=== PATIENT | male | born 1960 | race Caucasian/White ===

== ENCOUNTER 2016-10-12 20:14 | Emergency (ER) | payer OTHER ==
[~2016-10-12] VITALS: Ht 175.3 cm; Wt 68.0 kg
[2016-10-12 20:25] VITALS: BP 120/85
[2016-10-12] MEDS ORDERED: NAPR500T PO (21:08)
--- NOTE | 2016-10-12 21:23 | PHYS DOC ---
Past Medical History Past Medical History: No Pertinent History Past Surgical History: Tonsillectomy Smoking: Cigarettes, 1 Pack Per Day Alcohol Use: None Drug Use: Cocaine, Marijuana Adult General Chief Complaint Chief Complaint: ABDOMINAL PAIN [facility] HPI Patient is a 56 year old male who presents with abdominal pain in the left lower abdomen associated with a bulging and he just recently expensive last several weeks. This bulging. His reducible at this point he notices primarily when he lifts heavy things during his job. 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 Patient denies any nausea, vomiting, diarrhea, UTI symptoms, decreased flatus or inability to bowel without bowel movement. Patient denies indirect trauma. Patient says that this bulging began several weeks ago as got progressively more frequent and more severe. She denies any hematuria, fevers or chills or other symptoms.Denies penile discharge or scrotal pain or rectal discomfort. Review of Systems Review of Systems Constitutional: Denies fever or chills [] Eyes: Denies change in visual acuity, redness, or eye pain [] HENT: Denies nasal congestion or sore throat [] Respiratory: Denies cough or shortness of breath [] Cardiovascular: No additional information not addressed in HPI [] GI: His only complaint is left inguinal abdominal pain no, nausea, vomiting, bloody stools or diarrhea [] : Denies dysuria or hematuria [] Musculoskeletal: Denies back pain or joint pain [] Integument: Denies rash or skin lesions [] Neurologic: Denies headache, focal weakness or sensory changes [] Endocrine: Denies polyuria or polydipsia [] Allergies Allergies Allergies Coded Allergies Type Severity Reaction Last Updated Verified No Known Drug Allergies 10/12/16 No Physical Exam Physical Exam Constitutional: Well developed, well nourished, no acute distress, non-toxic appearance. [] HENT: Normocephalic, atraumatic, bilateral external ears normal, oropharynx moist, no oral exudates, nose normal. [] Eyes: PERRLA, EOMI, conjunctiva normal, no discharge. [] Neck: Normal range of motion, no tenderness, supple, no stridor. [] Cardiovascular:Heart rate regular rhythm, no murmur [] Lungs & Thorax: Bilateral breath sounds clear to auscultation [] Abdomen: Bowel sounds normal, soft, no tenderness, no masses, no pulsatile masses. he does have a reducible inguinal hernia on the left Skin: Warm, dry, no erythema, no rash. [] Back: No tenderness, no CVA tenderness. [] Extremities: No tenderness, no cyanosis, no clubbing, ROM intact, no edema. [] Neurologic: Alert and oriented X 3, normal motor function, normal sensory function, no focal deficits noted. [] Psychologic: Affect normal, judgement normal, mood normal. [] Current Patient Data Vital Signs Vital Signs Date Time Temp Pulse Resp B/P (MAP) Pulse Ox O2 Delivery O2 Flow Rate FiO2 10/12/16 20:25 98.4 87 16 120/85 (97) 95 Room Air 98.4 EKG EKG [] Radiology/Procedures Radiology/Procedures [] Course & Med Decision Making Course & Med Decision Making Pertinent Labs and Imaging studies reviewed. (See chart for details) Patient with a soft abdomen he is reproducible inguinal hernia that I would call symptomatically because worse when he lifts. I gave him follow-up with a general surgeon who could electively repair his symptomatic inguinal hernia. It is not incarcerated is not strangulated by physical exam is easily reproducible and reducible. Impression direct inguinal hernia next disposition discharged home with general surgery follow-up and precautions about lifting given [] Dragon Disclaimer Dragon Disclaimer This electronic medical record was generated, in whole or in part, using a voice recognition dictation system. Departure Departure Impression: Primary Impression: Inguinal hernia Disposition: 01 HOME, SELF-CARE Condition: STABLE Referrals: DAVID BHANDARI MD NO PCP (PCP) Patient Instructions: Hernia Additional Instructions: Please return for any increasing pain or inability to reduce your hernia in the left lower abdomen. Please refrain from lifting any heavy objects until you're seen by the general surgeon this upcoming week. Return if you have any inability to urinate and inability to pass flatus or stool next 12-24 hours or give any questions or concerns. Scripts Naproxen (NAPROSYN) 500 Mg Tablet 1 TAB PO BID, #14 TAB 1 Refill Prov: RAUL VAZQUEZ MD 10/12/16 RAUL VAZQUEZ MD Oct 12, 2016 21:23
== END 2016-10-12 21:13 | disposition home or self-care (01) ==
LOC: ER 20:14
DX: K40.90 Unilateral inguinal hernia, without obstruction or gangrene, not specified as recurrent (principal); F17.210 Nicotine dependence, cigarettes, uncomplicated; F12.10 Cannabis abuse, uncomplicated; F14.10 Cocaine abuse, uncomplicated
CPT/HCPCS: 99283

== ENCOUNTER 2018-09-18 19:08 | Emergency (ER) | payer SELFPAY ==
[~2018-09-18] VITALS: Ht 175.3 cm; Wt 68.0 kg
[~2018-09-18 19:08] MED LIST: NAPR-683 PO
[2018-09-18] MEDS ORDERED: IV NORMAL SALINE 1000ML BAG 1,000 ML IV ONE (19:45)
[2018-09-18 19:50] LABS: BASO % 0 % (0-3); EOS % 0 % (0-3); HEMATOCRIT 53.3 % (39.0-53.0); HEMOGLOBIN 17.2 g/dL (13.0-17.5); LYMPH % 7 % (24-48); MEAN CORPUSCULAR HEMOGLOBIN 30 pg (25-35); MEAN CORPUSCULAR HGB CONC 32 g/dL (31-37); MEAN CORPUSCULAR VOLUME 93 fL (79-100); MONO # 0.6 x10^3/uL (0.0-1.1); MONO % 4 % (0-9); NEUT # 13.5 x10^3uL (1.8-7.7); NEUT % 89 % (31-73); PLATELET COUNT 248 x10^3/uL (140-400); RED BLOOD COUNT 5.71 x10^6/uL (4.30-5.70); RED CELL DISTRIBUTION WIDTH 13.5 % (11.5-14.5); WHITE BLOOD COUNT 15.2 x10^3/uL (4.0-11.0)
--- NOTE | 2018-09-18 19:53 | PHYS DOC ---
Past Medical History Past Medical History: No Pertinent History (TERRELL ROBLES DO) Past Surgical History: Tonsillectomy (TERRELL ROBLES DO) Alcohol Use: None Drug Use: Cocaine, Marijuana (TERRELL ROBLES DO) Adult General Chief Complaint Chief Complaint: fell out of 10 feet tree, landed on back. HPI HPI Patient is a 58 year old who presented to the ER by private vehicle for evaluation of back pain, chest pain and pelvic pain after he fell out of a 10 feet tree. Patient was trying to cut the tree limb. He was in the tree and his partner tried to pull the rope down, and accidentally pulled the tree limb, knocked him down. Patient said he hit the back of his head on grass but no loss of consciousness. He was able to get up to walk several times after the accident. Patient denied any bowel or bladder incontinence. Patient complains of midback pain, right side chest pain, left side pelvic pain and left groin pain. Patient denied any extremities pain, no feet pain, no knee pain. Patient had a tetanus vaccination 2 years ago. Patient said he is not on any medication at this time. (TERRELL ROBLES DO) Review of Systems Review of Systems Constitutional: Denies fever or chills [] Eyes: Denies change in visual acuity, redness, or eye pain [] HENT: Denies nasal congestion or sore throat [] Respiratory: Denies cough or shortness of breath [] Cardiovascular: No additional information not addressed in HPI [] GI: Denies abdominal pain, nausea, vomiting, bloody stools or diarrhea [] : Denies dysuria or hematuria [] Musculoskeletal: Denies back pain or joint pain [] Integument: Denies rash or skin lesions [] Neurologic: Denies headache, focal weakness or sensory changes [] Endocrine: Denies polyuria or polydipsia [] All other systems were reviewed and found to be within normal limits, except as documented in this note. (TERRELL ROBLES DO) Current Medications Current Medications Current Medications Medications (Trade) Dose Ordered Sig/Ronald Start Time Stop Time Status Last Admin Dose Admin Info (CONTRAST GIVEN -- Rx MONITORING) 1 each PRN DAILY PRN 09/18/18 20:15 09/20/18 20:14 Iohexol (Omnipaque 300 Mg/ml) 75 ml 1X ONCE 09/18/18 20:15 09/18/18 20:16 DC 09/18/18 20:15 75 ML Neomycin/ Polymyxin/ Bacitracin (Triple Antibiotic Ointment) 1 pkt 1X ONCE 09/18/18 22:30 09/18/18 22:31 Sodium Chloride 1,000 ml @ 1,000 mls/hr 1X ONCE 09/18/18 19:45 09/18/18 20:44 DC 09/18/18 20:03 1,000 MLS/HR (REBEKAH JONAS DO) Allergies Allergies Allergies Coded Allergies Type Severity Reaction Last Updated Verified No Known Drug Allergies 10/12/16 No (REBEKAH JONAS DO) Physical Exam Physical Exam Constitutional: Well developed, well nourished, no acute distress, non-toxic appearance. [] HENT: Normocephalic, atraumatic, bilateral external ears normal, oropharynx moist, no oral exudates, nose normal. [] Eyes: PERRLA, EOMI, conjunctiva normal, no discharge. [] Neck: no tenderness, no stridor, in rigid C-collar that was applied in triage. Cardiovascular:Heart rate regular rhythm, no murmur [] Lungs & Thorax: Bilateral breath sounds clear to auscultation, there is a large area of skin contusion and abrasion along the right scapular area, There is tenderness to palpation on right posterior ribs area just below right scapular and above rib # 10. Abdomen: Bowel sounds normal, soft, There is tenderness in left groin and left lower abdominal area, there is a reducible left inguinal hernia, no masses, no pulsatile masses. [] Skin: Warm, dry, no erythema, . SKIN ABRASION ON LEFT SCAPULAR AREA. Back: There is right flank tenderness to palpation, there is midline tenderness to palpation in area of L1 TO T7. Extremities: No tenderness, no cyanosis, no clubbing, ROM intact, no edema. There is left side pelvic tenderness to palpation. There is no feet or calcaneous tenderness to palpation. Neurologic: Alert and oriented X 3, normal motor function, normal sensory function, no focal deficits noted. [] Psychologic: Affect normal, judgement normal, mood normal. [] (TERRLEL ROBLES DO) Physical Exam Constitutional: Well developed, well nourished, no acute distress, non-toxic appearance. [] HENT: Normocephalic, atraumatic, oropharynx moist Eyes: PERRL, EOMI, conjunctiva normal, no discharge. [] Neck: C-collar cleared post CT, full ROM, no midline cervical spine tenderness Cardiovascular: Heart rate regular rhythm Lungs & Thorax: Bilateral breath sounds clear to auscultation Abdomen: Soft, Left inguinal area with some mild tenderness. NO hernia noted with patient in supine position; Pelvis stable and nontender Skin: Warm, dry, no erythema, Abrasion to left scapular area Back: Midline tenderness to thoracolumbar region Extremities: No tenderness, ROM intact, no deformity Neurologic: Alert and oriented X 3, normal motor function, normal sensory function, no focal deficits noted. [] Psychologic: Affect normal, judgement normal, mood normal. [] (REBEKAH JONAS DO) Current Patient Data Vital Signs Vital Signs Date Time Temp Pulse Resp B/P (MAP) Pulse Ox O2 Delivery O2 Flow Rate FiO2 09/18/18 21:42 82 21 132/85 (101) 93 Room Air 09/18/18 19:13 98.1 98.1 (REBEKAH JONAS DO) Lab Values Laboratory Tests Test 09/18/18 19:30 09/18/18 22:03 White Blood Count 15.2 x10^3/uL (4.0-11.0) H Red Blood Count 5.71 x10^6/uL (4.30-5.70) H Hemoglobin 17.2 g/dL (13.0-17.5) Hematocrit 53.3 % (39.0-53.0) H Mean Corpuscular Volume 93 fL (79-100) Mean Corpuscular Hemoglobin 30 pg (25-35) Mean Corpuscular Hemoglobin Concent 32 g/dL (31-37) Red Cell Distribution Width 13.5 % (11.5-14.5) Platelet Count 248 x10^3/uL (140-400) Neutrophils (%) (Auto) 89 % (31-73) H Lymphocytes (%) (Auto) 7 % (24-48) L Monocytes (%) (Auto) 4 % (0-9) Eosinophils (%) (Auto) 0 % (0-3) Basophils (%) (Auto) 0 % (0-3) Neutrophils # (Auto) 13.5 x10^3uL (1.8-7.7) H Lymphocytes # (Auto) 1.0 x10^3/uL (1.0-4.8) Monocytes # (Auto) 0.6 x10^3/uL (0.0-1.1) Eosinophils # (Auto) 0.0 x10^3/uL (0.0-0.7) Basophils # (Auto) 0.0 x10^3/uL (0.0-0.2) Segmented Neutrophils % 84 % (35-66) H Band Neutrophils % 3 % (0-9) Lymphocytes % 8 % (24-48) L Monocytes % 5 % (0-10) Platelet Estimate Adequate (ADEQUATE) Prothrombin Time 12.3 SEC (11.7-14.0) Prothrombin Time INR 0.9 (0.8-1.1) PTT 36 SEC (24-38) Sodium Level 141 mmol/L (136-145) Potassium Level 3.5 mmol/L (3.5-5.1) Chloride Level 102 mmol/L (98-107) Carbon Dioxide Level 26 mmol/L (21-32) Anion Gap 13 (6-14) Blood Urea Nitrogen 18 mg/dL (8-26) Creatinine 1.1 mg/dL (0.7-1.3) Estimated GFR (Cockcroft-Gault) 68.5 BUN/Creatinine Ratio 16 (6-20) Glucose Level 97 mg/dL (70-99) Calcium Level 10.1 mg/dL (8.5-10.1) Total Bilirubin 0.4 mg/dL (0.2-1.0) Aspartate Amino Transferase (AST) 41 U/L (15-37) H Alanine Aminotransferase (ALT) 31 U/L (16-63) Alkaline Phosphatase 66 U/L (46-116) Total Protein 9.0 g/dL (6.4-8.2) H Albumin 4.8 g/dL (3.4-5.0) Albumin/Globulin Ratio 1.1 (1.0-1.7) Ethyl Alcohol Level < 10 mg/dL (0-10) Urine Collection Type Void Urine Color Yellow Urine Clarity Clear Urine pH 5.5 Urine Specific Buckhorn >=1.030 Urine Protein Negative mg/dL (NEG-TRACE) Urine Glucose (UA) Negative mg/dL (NEG) Urine Ketones (Stick) Negative mg/dL (NEG) Urine Blood Negative (NEG) Urine Nitrite Negative (NEG) Urine Bilirubin Negative (NEG) Urine Urobilinogen Dipstick 0.2 mg/dL (0.2 mg/dL) Urine Leukocyte Esterase Negative (NEG) Urine RBC Occ /HPF (0-2) Urine WBC Occ /HPF (0-4) Urine Squamous Epithelial Cells None /LPF Urine Bacteria 0 /HPF (0-FEW) Urine Mucus Marked /LPF Urine Sperm Present /HPF Urine Opiates Screen Neg (NEG) Urine Methadone Screen Neg (NEG) Urine Barbiturates Neg (NEG) Urine Phencyclidine Screen Neg (NEG) Urine Amphetamine/Methamphetamine Neg (NEG) Urine Benzodiazepines Screen Neg (NEG) Urine Cocaine Screen Pos (NEG) Urine Cannabinoids Screen Neg (NEG) Urine Ethyl Alcohol Neg (NEG) Laboratory Tests 09/18/18 19:30 Laboratory Tests 09/18/18 19:30 (REBEKAH JONAS DO) Lab Values Laboratory Tests Test 09/18/18 19:30 White Blood Count 15.2 x10^3/uL (4.0-11.0) H Red Blood Count 5.71 x10^6/uL (4.30-5.70) H Hemoglobin 17.2 g/dL (13.0-17.5) Hematocrit 53.3 % (39.0-53.0) H Mean Corpuscular Volume 93 fL (79-100) Mean Corpuscular Hemoglobin 30 pg (25-35) Mean Corpuscular Hemoglobin Concent 32 g/dL (31-37) Red Cell Distribution Width 13.5 % (11.5-14.5) Platelet Count 248 x10^3/uL (140-400) Neutrophils (%) (Auto) 89 % (31-73) H Lymphocytes (%) (Auto) 7 % (24-48) L Monocytes (%) (Auto) 4 % (0-9) Eosinophils (%) (Auto) 0 % (0-3) Basophils (%) (Auto) 0 % (0-3) Neutrophils # (Auto) 13.5 x10^3uL (1.8-7.7) H Lymphocytes # (Auto) 1.0 x10^3/uL (1.0-4.8) Monocytes # (Auto) 0.6 x10^3/uL (0.0-1.1) Eosinophils # (Auto) 0.0 x10^3/uL (0.0-0.7) Basophils # (Auto) 0.0 x10^3/uL (0.0-0.2) Segmented Neutrophils % 84 % (35-66) H Band Neutrophils % 3 % (0-9) Lymphocytes % 8 % (24-48) L Monocytes % 5 % (0-10) Platelet Estimate Adequate (ADEQUATE) Prothrombin Time 12.3 SEC (11.7-14.0) Prothrombin Time INR 0.9 (0.8-1.1) PTT 36 SEC (24-38) Sodium Level 141 mmol/L (136-145) Potassium Level 3.5 mmol/L (3.5-5.1) Chloride Level 102 mmol/L (98-107) Carbon Dioxide Level 26 mmol/L (21-32) Anion Gap 13 (6-14) Blood Urea Nitrogen 18 mg/dL (8-26) Creatinine 1.1 mg/dL (0.7-1.3) Estimated GFR (Cockcroft-Gault) 68.5 BUN/Creatinine Ratio 16 (6-20) Glucose Level 97 mg/dL (70-99) Calcium Level 10.1 mg/dL (8.5-10.1) Total Bilirubin 0.4 mg/dL (0.2-1.0) Aspartate Amino Transferase (AST) 41 U/L (15-37) H Alanine Aminotransferase (ALT) 31 U/L (16-63) Alkaline Phosphatase 66 U/L (46-116) Total Protein 9.0 g/dL (6.4-8.2) H Albumin 4.8 g/dL (3.4-5.0) Albumin/Globulin Ratio 1.1 (1.0-1.7) Ethyl Alcohol Level < 10 mg/dL (0-10) Laboratory Tests 09/18/18 19:30 Laboratory Tests 09/18/18 19:30 (TERRELL ROBLES DO) EKG EKG [] (TERRELL ROBLES DO) Radiology/Procedures Radiology/Procedures [] (TERRELL ROBLES DO) Radiology/Procedures PROCEDURE: CT HEAD AND CERVICAL SPINE WO EXAM: Head cervical spine CT without contrast. HISTORY: Fall. TECHNIQUE: Computed tomographic images of the head and cervical spine were obtained without contrast. *One or more of the following individualized dose reduction techniques were utilized for this examination: 1. Automated exposure control. 2. Adjustment of the mA and/or kV according to patient size. 3. Use of iterative reconstruction technique. COMPARISON: None. FINDINGS: Head: There is no hemorrhage. There is no mass effect or midline shift. There is no hydrocephalus. The julian-white matter differentiation pattern is intact. The orbits are unremarkable. There is a left lamina appreciable fracture. This is chronic in appearance. The mastoid air cells are clear. No calvarial lesion is seen. Cervical spine: There is mild listhesis at multiple levels. There is degenerative endplate remodeling with disc space narrowing and osteophytosis primarily at C5-C6. There is multilevel facet arthropathy. There is no suspicious osseous lesion. There is mild biapical emphysema. At C2-C3, there is a disc bulge and endplate remodeling. There is mild right facet and uncovertebral arthropathy. There is mild right foraminal stenosis. At C3-C4, there is a disc bulge and endplate osteophytosis. There is mild bilateral facet arthropathy. There is bilateral uncovertebral arthropathy. There is severe right and moderate left foraminal stenosis. At C4-C5, there is a posterior central disc protrusion superimposed on a disc bulge. There is mild right facet arthropathy. There is mild right foraminal stenosis. At C5-C6, there is a disc bulge and endplate osteophytosis. There is moderate right facet arthropathy. There is bilateral uncovertebral arthropathy. There is mild to moderate bilateral foraminal stenosis. At C6-C7, there is a disc bulge and endplate osteophytosis. There is mild right foraminal stenosis. IMPRESSION: 1. No acute intracranial finding or evidence of acute cervical spine trauma. 2. Left lamina papyracea fracture, chronic in appearance. 3. Degenerative change within the cervical spine, described in detail above. Electronically signed by: Anyi Grey MD (09/18/2018 8:51 PM) [facility] PROCEDURE: CT CHEST/ABD/PELVIS/THORACIC/LUMBAR SPINE RECONSTRUCT EXAM: Chest, abdomen and pelvis CT with intravenous contrast; thoracic and lumbar spine CT without contrast. HISTORY: Fall. TECHNIQUE: Computed tomographic images of the chest, abdomen and pelvis were obtained following the administration of contrast. Noncontrast reformatted images of the lumbar and thoracic spine were also obtained. Multiplanar reformatting was performed. *One or more of the following individualized dose reduction techniques were utilized for this examination: 1. Automated exposure control. 2. Adjustment of the mA and/or kV according to patient size. 3. Use of iterative reconstruction technique. COMPARISON: None. FINDINGS: Chest: The heart is normal in size. The aorta is normal in caliber. There is no dissection. There is no evidence of traumatic mediastinal injury. There is no pathologically enlarged distal or hilar lymph node. The thyroid is unremarkable. There is pulmonary emphysema. There is no pneumothorax or pleural effusion. There is no infiltrate. There is posterior dependent and basilar atelectasis. There is mild central bronchial wall thickening. There is a 7 mm slightly irregular nodular opacity within the anterior inferior left upper lobe. There is a 9 mm nodule within the right middle lobe along the horizontal fissure. There is a similar smaller nodule along the anterior right horizontal fissure measuring 3 mm. These may be due to fissural lymph nodes. There is a 4 mm pleural-based nodule within the lateral right lower lobe. No displaced rib fracture is seen. No sternal fracture is seen. Abdomen and pelvis: There is a tiny hiatal hernia. There is minimal fatty infiltration of the liver along the falciform ligament. The gallbladder, pancreas, and spleen are unremarkable. There is a 2.4 cm right adrenal nodule. There is a 1.3 cm left adrenal nodule. The kidneys are unremarkable. There is no appendicitis. There is no bowel obstruction. There is moderate colonic stool. There are a few distal colonic diverticula. The bladder is unremarkable. The prostate is mildly enlarged. There is a small fat-containing left inguinal hernia. There is no lymphadenopathy. There is aortic atherosclerosis. Lumbar spine: There is an acute mildly depressed superior endplate compression fracture of the left greater the right aspect of L2. No fracture line extension is seen to the posterior elements. There is no retropulsion of the L2 cortex into the central canal. There is also faint linear lucency along the inferior endplate of L1 which may be due to endplate remodeling or a nondisplaced fracture. There is multilevel endplate remodeling. There is minimal retrolisthesis of L2 on L3 and L3 on L4. There is minimal grade 1 anterolisthesis of L4 and L5. There is mild scoliosis. There is multilevel facet arthropathy. A combination of disc bulges with endplate remodeling and facet arthropathy contributes to mild bilateral foraminal stenosis at L1-L2, L2-L3 and L3-L4. There is mild bilateral foraminal and mild central canal stenosis at L4-L5 and there is moderate right and mild left foraminal stenosis at L5-S1. Thoracic spine: There is mild thoracic scoliosis and increased kyphosis. No acute fracture is seen. There is degenerative endplate remodeling with anterior spurring at multiple levels. There is no suspicious osseous lesion. There are multiple disc bulges. There is no severe thoracic foraminal or central canal stenosis. IMPRESSION: 1. Mildly depressed acute superior endplate compression fracture of L2. No fracture line extension to the posterior elements or retropulsion of the cortex is seen. There is lucency along the adjacent inferior L1 endplate which may be degenerative or due to a nondisplaced fracture. 2. No acute thoracic or intra-abdominal or intrapelvic finding. 3. Pulmonary emphysema. 4. Bilateral pulmonary nodules, the largest of which measures 9 mm along the right horizontal fissure and may be a fissural lymph node. The second largest nodule measures 7 mm within the anterior left upper lobe. Follow up according to Fleischner Society criteria. 5. Tiny hiatal hernia. 6. Hepatic steatosis. 7. Bilateral adrenal nodules. Follow up with an adrenal protocol CT or MRI can be performed for characterization. 8. Few distal colonic diverticula. 9. Small fat-containing left internal hernia and mild prostatomegaly. 10. Multilevel degenerative change within the lumbar and thoracic spine. This results in stenosis at the aforementioned lumbar levels. Electronically signed by: Anyi Grey MD (09/18/2018 9:12 PM) [facility] (REBEKAH JONAS DO) Course & Med Decision Making Course & Med Decision Making Pertinent Labs and Imaging studies reviewed. (See chart for details) Handed over care to Dr. Leonid Jonas at shift change. (TERRELL ROBLES DO) Course & Med Decision Making 1800- Signout received from Dr. Robles for patient s/p fall from 10 feet. Patient seen and evaluated by myself. Labs reviewed. UA pending. UA without acute process. CT head/chest/abd/pelvis and CT cervical/thoracic/lumbar spine pending. CT findings of acute mild lumbar compression fracture. Left inguinal fat containing hernia noted. CT also noted incidental pulmonary nodule. C- collar cleared. Patient stable for discharge with outpatient follow-up with PCP. Discussed findings and plan with patient, who acknowledges understanding and agreement. (REBEKAH JONAS DO) Dragon Disclaimer Dragon Disclaimer This electronic medical record was generated, in whole or in part, using a voice recognition dictation system. (TERRELL ROBLES DO) Departure Departure Impression: Primary Impression: Fall Additional Impressions: Inguinal hernia Compression fracture Pulmonary nodules Abrasion Disposition: HOME, SELF-CARE Condition: STABLE Referrals: NO PCP (PCP) Patient Instructions: Abrasion, [id number], Back, Compression Fracture, Inguinal Hernia, Adult, Pulmonary Nodule, [id number] Scripts Ibuprofen (MOTRIN IB) 200 Mg Tablet 600 MG PO Q8HRS PRN for PAIN, #30 TAB Prov: REBEKAH JONAS DO 09/18/18 Orphenadrine Citrate (ORPHENADRINE CITRATE) 100 Mg Tablet.er 100 MG PO BID PRN for MUSCLE PAIN, #14 Prov: REBEKAH JONAS DO 09/18/18 Hydrocodone/Apap 5-325 (NORCO 5-325 TABLET) 1 Each Tablet 0.5-1 TAB PO PRN Q6HRS PRN for PAIN, #14 TAB 0 Refills Prov: REBEKAH JONAS DO 09/18/18 Problem Qualifiers Primary Impression: Fall Encounter type: initial encounter Qualified Codes: W19.XXXA - Unspecified fall, initial encounter Additional Impressions: Inguinal hernia Obstruction and gangrene presence: without obstruction or gangrene Laterality: unilateral Recurrence: not specified as recurrent Qualified Codes: K40.90 - Unilateral inguinal hernia, without obstruction or gangrene, not specified as recurrent TERRELL ROBLES DO September 18, 2018 19:53 REBEKAH JONAS DO September 18, 2018 22:18
[2018-09-18 19:57] LABS: CALCIUM 10.1 mg/dL (8.5-10.1); CREATININE 1.1 mg/dL (0.7-1.3); GFR 68.5; POTASSIUM 3.5 mmol/L (3.5-5.1)
[2018-09-18 20:00] LABS: PROTHROMBIN TIME PATIENT 12.3 SEC (11.7-14.0)
[2018-09-18 20:03] LABS: ALBUMIN 4.8 g/dL (3.4-5.0); ALBUMIN/GLOBULIN RATIO 1.1 (1.0-1.7); TOTAL BILIRUBIN 0.4 mg/dL (0.2-1.0)
[2018-09-18 20:09] LABS: % BANDS 3 % (0-9); % LYMPHS 8 % (24-48); % MONOS 5 % (0-10); % SEGS 84 % (35-66); PLT ESTIMATE ADEQUATE (ADEQUATE)
[2018-09-18] MEDS ORDERED: CONTRAST GIVEN. MC PRN (20:15)
[2018-09-18] MEDS ORDERED: IOHEXOL 300 MG/ML 100ML VIAL. IV ONE (20:15)
--- NOTE | 2018-09-18 20:54 | RAD ---
EXAM: Head cervical spine CT without contrast. HISTORY: Fall. TECHNIQUE: Computed tomographic images of the head and cervical spine were obtained without contrast. *One or more of the following individualized dose reduction techniques were utilized for this examination: 1. Automated exposure control. 2. Adjustment of the mA and/or kV according to patient size. 3. Use of iterative reconstruction technique. COMPARISON: None. FINDINGS: Head: There is no hemorrhage. There is no mass effect or midline shift. There is no hydrocephalus. The julian-white matter differentiation pattern is intact. The orbits are unremarkable. There is a left lamina appreciable fracture. This is chronic in appearance. The mastoid air cells are clear. No calvarial lesion is seen. Cervical spine: There is mild listhesis at multiple levels. There is degenerative endplate remodeling with disc space narrowing and osteophytosis primarily at C5-C6. There is multilevel facet arthropathy. There is no suspicious osseous lesion. There is mild biapical emphysema. At C2-C3, there is a disc bulge and endplate remodeling. There is mild right facet and uncovertebral arthropathy. There is mild right foraminal stenosis. At C3-C4, there is a disc bulge and endplate osteophytosis. There is mild bilateral facet arthropathy. There is bilateral uncovertebral arthropathy. There is severe right and moderate left foraminal stenosis. At C4-C5, there is a posterior central disc protrusion superimposed on a disc bulge. There is mild right facet arthropathy. There is mild right foraminal stenosis. At C5-C6, there is a disc bulge and endplate osteophytosis. There is moderate right facet arthropathy. There is bilateral uncovertebral arthropathy. There is mild to moderate bilateral foraminal stenosis. At C6-C7, there is a disc bulge and endplate osteophytosis. There is mild right foraminal stenosis. IMPRESSION: 1. No acute intracranial finding or evidence of acute cervical spine trauma. 2. Left lamina papyracea fracture, chronic in appearance. 3. Degenerative change within the cervical spine, described in detail above. Electronically signed by: Anyi Grey MD (09/18/2018 8:51 PM) [facility]
--- NOTE | 2018-09-18 21:15 | RAD ---
EXAM: Chest, abdomen and pelvis CT with intravenous contrast; thoracic and lumbar spine CT without contrast. HISTORY: Fall. TECHNIQUE: Computed tomographic images of the chest, abdomen and pelvis were obtained following the administration of contrast. Noncontrast reformatted images of the lumbar and thoracic spine were also obtained. Multiplanar reformatting was performed. *One or more of the following individualized dose reduction techniques were utilized for this examination: 1. Automated exposure control. 2. Adjustment of the mA and/or kV according to patient size. 3. Use of iterative reconstruction technique. COMPARISON: None. FINDINGS: Chest: The heart is normal in size. The aorta is normal in caliber. There is no dissection. There is no evidence of traumatic mediastinal injury. There is no pathologically enlarged distal or hilar lymph node. The thyroid is unremarkable. There is pulmonary emphysema. There is no pneumothorax or pleural effusion. There is no infiltrate. There is posterior dependent and basilar atelectasis. There is mild central bronchial wall thickening. There is a 7 mm slightly irregular nodular opacity within the anterior inferior left upper lobe. There is a 9 mm nodule within the right middle lobe along the horizontal fissure. There is a similar smaller nodule along the anterior right horizontal fissure measuring 3 mm. These may be due to fissural lymph nodes. There is a 4 mm pleural-based nodule within the lateral right lower lobe. No displaced rib fracture is seen. No sternal fracture is seen. Abdomen and pelvis: There is a tiny hiatal hernia. There is minimal fatty infiltration of the liver along the falciform ligament. The gallbladder, pancreas, and spleen are unremarkable. There is a 2.4 cm right adrenal nodule. There is a 1.3 cm left adrenal nodule. The kidneys are unremarkable. There is no appendicitis. There is no bowel obstruction. There is moderate colonic stool. There are a few distal colonic diverticula. The bladder is unremarkable. The prostate is mildly enlarged. There is a small fat-containing left inguinal hernia. There is no lymphadenopathy. There is aortic atherosclerosis. Lumbar spine: There is an acute mildly depressed superior endplate compression fracture of the left greater the right aspect of L2. No fracture line extension is seen to the posterior elements. There is no retropulsion of the L2 cortex into the central canal. There is also faint linear lucency along the inferior endplate of L1 which may be due to endplate remodeling or a nondisplaced fracture. There is multilevel endplate remodeling. There is minimal retrolisthesis of L2 on L3 and L3 on L4. There is minimal grade 1 anterolisthesis of L4 and L5. There is mild scoliosis. There is multilevel facet arthropathy. A combination of disc bulges with endplate remodeling and facet arthropathy contributes to mild bilateral foraminal stenosis at L1-L2, L2-L3 and L3-L4. There is mild bilateral foraminal and mild central canal stenosis at L4-L5 and there is moderate right and mild left foraminal stenosis at L5-S1. Thoracic spine: There is mild thoracic scoliosis and increased kyphosis. No acute fracture is seen. There is degenerative endplate remodeling with anterior spurring at multiple levels. There is no suspicious osseous lesion. There are multiple disc bulges. There is no severe thoracic foraminal or central canal stenosis. IMPRESSION: 1. Mildly depressed acute superior endplate compression fracture of L2. No fracture line extension to the posterior elements or retropulsion of the cortex is seen. There is lucency along the adjacent inferior L1 endplate which may be degenerative or due to a nondisplaced fracture. 2. No acute thoracic or intra-abdominal or intrapelvic finding. 3. Pulmonary emphysema. 4. Bilateral pulmonary nodules, the largest of which measures 9 mm along the right horizontal fissure and may be a fissural lymph node. The second largest nodule measures 7 mm within the anterior left upper lobe. Follow up according to Fleischner Society criteria. 5. Tiny hiatal hernia. 6. Hepatic steatosis. 7. Bilateral adrenal nodules. Follow up with an adrenal protocol CT or MRI can be performed for characterization. 8. Few distal colonic diverticula. 9. Small fat-containing left internal hernia and mild prostatomegaly. 10. Multilevel degenerative change within the lumbar and thoracic spine. This results in stenosis at the aforementioned lumbar levels. Electronically signed by: Anyi Grey MD (09/18/2018 9:12 PM) [facility]
[2018-09-18 22:09] LABS: BILIRUBIN,URINE NEGATIVE (NEG); CLARITY,URINE CLEAR; COLOR,URINE YELLOW; NITRITE,URINE NEGATIVE (NEG); PH,URINE 5.5; PROTEIN,URINE NEGATIVE (NEG-TRACE); UROBILINOGEN,URINE 0.2 mg/dL (0.2 mg/dL)
[2018-09-18] MEDS ORDERED: HYDR-3164 PO (22:11)
[2018-09-18] MEDS ORDERED: ORPH100T PO (22:11)
[2018-09-18] MEDS ORDERED: IBUP200T44 PO (22:11)
[2018-09-18 22:20] LABS: BACTERIA,URINE 0 /HPF (0-FEW); RBC,URINE OCC /HPF (0-2); WBC,URINE OCC /HPF (0-4)
[2018-09-18 22:21] LABS: SPERM,URINE PRESENT /HPF
[2018-09-18 22:24] LABS: BARBITURATES NEG (NEG); BENZODIAZEPINES NEG (NEG); CANNABINOIDS NEG (NEG); COCAINE POS (NEG); METHADONE NEG (NEG); OPIATES NEG (NEG); PHENCYCLIDINE NEG (NEG)
[2018-09-18 22:25] LABS: AMPHETAMINE/METHAMPHETAMINE NEG (NEG)
[2018-09-18] MEDS ORDERED: NEOMY/BACITR/POLYMYXIN OINT PACKET. TP ONE (22:30)
[2018-09-18 22:42] VITALS: BP 111/68
[2018-09-18] MEDS ORDERED: HYDROcodone/APAP 5/325MG 1 TAB TABLET PO ONE (23:00)
== END 2018-09-18 22:55 | disposition home or self-care (01) ==
LOC: ER 19:08
DX: S32.028A Other fracture of second lumbar vertebra, initial encounter for closed fracture (principal); S40.011A Contusion of right shoulder, initial encounter; S40.212A Abrasion of left shoulder, initial encounter; R91.8 Other nonspecific abnormal finding of lung field; K44.9 Diaphragmatic hernia without obstruction or gangrene; K57.32 Diverticulitis of large intestine without perforation or abscess without bleeding; K40.90 Unilateral inguinal hernia, without obstruction or gangrene, not specified as recurrent; R07.89 Other chest pain; M47.892 Other spondylosis, cervical region; M47.894 Other spondylosis, thoracic region; Z90.89 Acquired absence of other organs; W14.XXXA Fall from tree, initial encounter; Y93.89 Activity, other specified; Y92.89 Other specified places as the place of occurrence of the external cause; Y99.8 Other external cause status
CPT/HCPCS: 36415; 70450; 71260; 72125; 74177; 80053; 80307; 81001; 85007; 85025; 85610; 85730; 86850; 86900; 86901; 99285; G0480; J7030; Q9967

== ENCOUNTER 2019-02-11 10:48 | Emergency (ER) | payer SELFPAY ==
[~2019-02-11] VITALS: Ht 175.3 cm; Wt 68.0 kg
[~2019-02-11 10:48] MED LIST changes: +HYDR-3164 PO; +IBUP200T44 PO; +ORPH100T PO
[2019-02-11 11:08] VITALS: BP 137/85
--- NOTE | 2019-02-11 11:09 | PHYS DOC ---
Past Medical History Past Medical History: No Pertinent History Additional Past Medical Histor: LEFT INGUINAL HERNIA (KEATONLORENZO KERNS APRN) Past Surgical History: No Surgical History (LORENZO PUGH APRN) Alcohol Use: None Drug Use: None (LORENZO PUGH APRN) Adult General Chief Complaint Chief Complaint: SEXUALLY TRANSMITTED DISEASE HPI HPI Patient is a 58 year old male who presents with penile discharge. Started today. [place] 3 days ago with a female, reports the condom broke. no dysuria or abdominal pain, no testicular pain or swelling. He is concerned about STD, resting in no distress (LORENZO PUGH APRN) Review of Systems Review of Systems Constitutional: Denies fever or chills [] Eyes: Denies change in visual acuity, redness, or eye pain [] HENT: Denies nasal congestion or sore throat [] Respiratory: Denies cough or shortness of breath [] Cardiovascular: No additional information not addressed in HPI [] GI: Denies abdominal pain, nausea, vomiting, bloody stools or diarrhea [] : Denies dysuria or hematuria []c/o penile discharge Musculoskeletal: Denies back pain or joint pain [] Integument: Denies rash or skin lesions [] Neurologic: Denies headache, focal weakness or sensory changes [] Endocrine: Denies polyuria or polydipsia [] All other systems were reviewed and found to be within normal limits, except as documented in this note. (KEATONLORENZO KERNS APRN) Current Medications Current Medications Current Medications Medications (Trade) Dose Ordered Sig/Ronald Start Time Stop Time Status Last Admin Dose Admin Azithromycin (Zithromax) 1,000 mg 1X ONCE 02/11/19 11:15 02/11/19 11:16 DC Ceftriaxone Sodium (Rocephin Im) 250 mg 1X ONCE 02/11/19 11:15 02/11/19 11:16 DC (CESAR ACOSTA MD) Allergies Allergies Allergies Coded Allergies Type Severity Reaction Last Updated Verified No Known Drug Allergies 10/12/16 No (CESAR ACOSTA MD) Physical Exam Physical Exam Constitutional: Well developed, well nourished, no acute distress, non-toxic appearance. [] HENT: Normocephalic, atraumatic, bilateral external ears normal, oropharynx moist, no oral exudates, nose normal. [] Eyes: PERRLA, EOMI, conjunctiva normal, no discharge. [] Neck: Normal range of motion, no tenderness, supple, no stridor. [] Cardiovascular:Heart rate regular rhythm, no murmur [] Lungs & Thorax: Bilateral breath sounds clear to auscultation [] Abdomen: Bowel sounds normal, soft, no tenderness, no masses, no pulsatile masses. [] : unable to assess, patient denied pain or swelling, c/o discharge Skin: Warm, dry, no erythema, no rash. [] Back: No tenderness, no CVA tenderness. [] Extremities: No tenderness, no cyanosis, no clubbing, ROM intact, no edema. [] Neurologic: Alert and oriented X 3, normal motor function, normal sensory function, no focal deficits noted. [] Psychologic: Affect normal, judgement normal, mood normal. [] (LORENZO PUGH APRN) Current Patient Data Vital Signs Vital Signs Date Time Temp Pulse Resp B/P (MAP) Pulse Ox O2 Delivery O2 Flow Rate FiO2 02/11/19 11:08 97.8 89 16 137/85 (102) 98 Room Air 97.8 (CESAR ACOSTA MD) EKG EKG [] (LORENZO PUGH APRN) Radiology/Procedures Radiology/Procedures [] (LORENZO PUGH APRN) Impressions: Penile discharge, concern for STD (LORENZO PUGH APRN) Course & Med Decision Making Course & Med Decision Making Pertinent Labs and Imaging studies reviewed. (See chart for details) []Patient here for concerns of STD, sexually active with new partner, discharge today, no pain or fever. He is resting in no distress Discussed STD testing, unable to give UA, ordered Rocehin and Zithromax. Pending swab arrival from lab, registration had discussion with patient about payment and MSE, he opted to [facility] and was advised to present to the Health department f or testing and treatment. (LORENZO PUGH APRN) Course & Med Decision Making Staff Physician Addendum: I was working in the ER during the course of this patient's visit. I was available for consultation as needed, but I was not directly involved in the care of this patient. (CESAR ACOSTA MD) Dragon Disclaimer Dragon Disclaimer This electronic medical record was generated, in whole or in part, using a voice recognition dictation system. (LORENZO PUGH APRN) Departure Departure Impression: Primary Impression: Concern about STD in male without diagnosis Disposition: 01 HOME, SELF-CARE (eloped) Condition: STABLE Referrals: NO PCP (PCP) LORENZO PUGH APRN Feb 11, 2019 11:09 CESAR ACOSTA MD Feb 12, 2019 08:08
[2019-02-11] MEDS ORDERED: cefTRIAXone IM 250 MG VIAL IM ONE (11:15)
[2019-02-11] MEDS ORDERED: AZITHROMYCIN 250 MG TABLET. PO ONE (11:15)
== END 2019-02-11 11:19 | disposition home or self-care (01) ==
LOC: ER 10:48
DX: Z20.2 Contact with and (suspected) exposure to infections with a predominantly sexual mode of transmission (principal); R36.9 Urethral discharge, unspecified
CPT/HCPCS: 99281

== ENCOUNTER 2020-11-09 16:55 | Emergency (ER) | payer SELFPAY ==
[~2020-11-09] VITALS: Ht 172.7 cm; Wt 62.7 kg
[2020-11-09 17:14] LABS: BASO # 0.1 x10^3/uL (0.0-0.2); BASO % 1 % (0-3); EOS # 0.1 x10^3/uL (0.0-0.7); EOS % 1 % (0-3); HEMATOCRIT 46.6 % (39.0-53.0); HEMOGLOBIN 15.8 g/dL (13.0-17.5); LYMPH # 1.9 x10^3/uL (1.0-4.8); LYMPH % 23 % (24-48); MEAN CORPUSCULAR HEMOGLOBIN 31 pg (25-35); MEAN CORPUSCULAR HGB CONC 34 g/dL (31-37); MEAN CORPUSCULAR VOLUME 93 fL (79-100); MONO # 0.3 x10^3/uL (0.0-1.1); MONO % 4 % (0-9); NEUT # 6.2 x10^3/uL (1.8-7.7); NEUT % 72 % (31-73); PLATELET COUNT 267 x10^3/uL (140-400); RED BLOOD COUNT 5.03 x10^6/uL (4.30-5.70); RED CELL DISTRIBUTION WIDTH 13.6 % (11.5-14.5); WHITE BLOOD COUNT 8.6 x10^3/uL (4.0-11.0)
[2020-11-09] MEDS ORDERED: IV NORMAL SALINE 1000ML BAG 1,000 ML IV ONE (17:15)
[2020-11-09 17:24] LABS: CALCIUM 9.3 mg/dL (8.5-10.1); CREATININE 1.1 mg/dL (0.7-1.3); GFR 68.1; POTASSIUM 3.4 mmol/L (3.5-5.1)
[2020-11-09 17:30] LABS: ALBUMIN 4.1 g/dL (3.4-5.0); ALBUMIN/GLOBULIN RATIO 1.3 (1.0-1.7); TOTAL BILIRUBIN 0.5 mg/dL (0.2-1.0); TOTAL PROTEIN 7.3 g/dL (6.4-8.2)
--- NOTE | 2020-11-09 17:36 | PHYS DOC ---
Past Medical History Past Medical History: Other Additional Past Medical Histor: LEFT INGUINAL HERNIA (VERONICA VANEGAS DO) Past Surgical History: No Surgical History (VERONICA VANEGAS DO) Smoking Status: Current Every Day Smoker Alcohol Use: None Drug Use: None (VERONICA VANEGAS DO) General Adult EDM: Chief Complaint: TRAUMA ALERT HPI: HPI: 60-year-old male who denies any past medical history presents to the ED as a trauma alert, complaints of neck pain, bilateral temporal pain and forehead pain after patient fell approximately 10 feet out of a tree while in the rain while cutting tree branches. Patient states he landed on his back and hit his head just prior to ed arrival, brought by a friend. Is not on any anticoagulants. Denies any loss of consciousness and states he was able to ambulate after the event. Is not prescribed any routine medications but states he had a leftover oxycodone that he took prior to ED arrival. Denies any alcohol or drug use. Later reports right wrist pain to rn. (VERONICA VANEGAS DO) Review of Systems: Review of Systems: Constitutional: Denies fever or chills. [] Eyes: Denies change in visual acuity. [] HENT: Denies nasal congestion or sore throat. [] Respiratory: Denies cough or shortness of breath. [] Cardiovascular: Denies chest pain or edema. [] GI: Denies nausea, vomiting, ] : Denies saddle anesthesia or urinary incontinence Musculoskeletal: Denies back pain or joint pain. [] Integument: Denies rash or diaphoresis Neurologic: Denies focal weakness or sensory loss in upper extremities Endocrine: Denies polyuria or polydipsia. [] Lymphatic: Denies swollen glands. [] Psychiatric: Denies depression or anxiety. [] (VERONICA VANEGAS DO) Heart Score: C/O Chest Pain: No Risk Factors: Risk Factors: DM, Current or recent (<one month) smoker, HTN, HLP, family history of CAD, obesity. Risk Scores: Score 0 - 3: 2.5% MACE over next 6 weeks - Discharge Home Score 4 - 6: 20.3% MACE over next 6 weeks - Admit for Clinical Observation Score 7 - 10: 72.7% MACE over next 6 weeks - Early Invasive Strategies (VERONICA VANEGAS DO) Current Medications: Current Medications Medications (Trade) Dose Ordered Sig/Ronald Start Time Stop Time Status Last Admin Dose Admin Sodium Chloride 1,000 ml @ 1,000 mls/hr 1X ONCE 11/09/20 17:15 11/09/20 18:14 [facility] Allergies: Allergies: Allergies Coded Allergies Type Severity Reaction Last Updated Verified No Known Drug Allergies 10/12/16 No ([facility]) Physical Exam: PE: Constitutional: Unkept disheveled appearance, clothing soaked wet with dirt, HENT: Septal hematoma, poor dentition, no oral bleeding/moist mucous membranes, no hemotympanum bilaterally Eyes: PERRLA, 3 mm bilaterally EOMI, conjunctiva normal, no discharge, Neck: Pain over upper midline cervical spine, c-collar placed in triage, Cardiovascular: S1/2 present, regular rhythm Lungs & Thorax: Speaking in full sentences, bilateral equal chest rise, no tachypnea or increased work of breathing Abdomen: soft, no tenderness, no hip tenderness, Skin: Warm, dry, Back: No midline step-offs or tenderness, no CVA tenderness. [] Extremities: No gross deformity, equal radial pulses, equal handgrip Neurologic: GCS 15, alert and oriented X 3, moving all 4 extremities, intact sensory dermatomes of upper extremity, Psychologic: Calm mood, normal affect ([facility]) Current Patient Data: Labs: Laboratory Tests Test 11/09/20 17:07 White Blood Count 8.6 x10^3/uL (4.0-11.0) Red Blood Count 5.03 x10^6/uL (4.30-5.70) Hemoglobin 15.8 g/dL (13.0-17.5) Hematocrit 46.6 % (39.0-53.0) Mean Corpuscular Volume 93 fL (79-100) Mean Corpuscular Hemoglobin 31 pg (25-35) Mean Corpuscular Hemoglobin Concent 34 g/dL (31-37) Red Cell Distribution Width 13.6 % (11.5-14.5) Platelet Count 267 x10^3/uL (140-400) Neutrophils (%) (Auto) 72 % (31-73) Lymphocytes (%) (Auto) 23 % (24-48) L Monocytes (%) (Auto) 4 % (0-9) Eosinophils (%) (Auto) 1 % (0-3) Basophils (%) (Auto) 1 % (0-3) Neutrophils # (Auto) 6.2 x10^3/uL (1.8-7.7) Lymphocytes # (Auto) 1.9 x10^3/uL (1.0-4.8) Monocytes # (Auto) 0.3 x10^3/uL (0.0-1.1) Eosinophils # (Auto) 0.1 x10^3/uL (0.0-0.7) Basophils # (Auto) 0.1 x10^3/uL (0.0-0.2) Sodium Level 144 mmol/L (136-145) Potassium Level 3.4 mmol/L (3.5-5.1) L Chloride Level 104 mmol/L (98-107) Carbon Dioxide Level 26 mmol/L (21-32) Anion Gap 14 (6-14) Blood Urea Nitrogen 14 mg/dL (8-26) Creatinine 1.1 mg/dL (0.7-1.3) Estimated GFR (Cockcroft-Gault) 68.1 BUN/Creatinine Ratio 13 (6-20) Glucose Level 150 mg/dL (70-99) H Calcium Level 9.3 mg/dL (8.5-10.1) Total Bilirubin Pending Aspartate Amino Transferase (AST) Pending Alanine Aminotransferase (ALT) Pending Alkaline Phosphatase Pending Total Protein Pending Albumin Pending Albumin/Globulin Ratio Pending Ethyl Alcohol Level < 10 mg/dL (0-10) Laboratory Tests 11/09/20 17:07 Laboratory Tests 11/09/20 17:07 Vital Signs: Vital Signs Date Time Temp Pulse Resp B/P (MAP) Pulse Ox O2 Delivery O2 Flow Rate FiO2 11/09/20 16:59 95.7 51 27 161/77 (105) 97 Room Air 95.7 (VERONICA VANEGAS DO) EKG: EKG: [] (VERONICA VANEGAS DO) Radiology/Procedures: Radiology/Procedures: IMAGING REPORT Signed PATIENT: KARINA WHITTEN ACCOUNT: [id number] : 1960 LOCATION: ER AGE: 60 SEX: M EXAM STATUS: REG ER ORD. PHYSICIAN: VERONICA VANEGAS DO REASON: neck pain, fall from tree [phone] PROCEDURE: CT HEAD AND CERVICAL SPINE WO EXAM: 1. CT HEAD WITHOUT CONTRAST. 2. CT FACIAL BONES WITHOUT CONTRAST. 3. CT CERVICAL SPINE WITHOUT CONTRAST. HISTORY: Fall from tree, pain. TECHNIQUE: Computed tomography of the head, facial bones and cervical spine was performed without intravenous contrast. One or more of the following individualized dose reduction techniques were utilized for this examination: 1. Automated exposure control. 2. Adjustment of the mA and/or kV according to patient size. 3. Use of iterative reconstruction technique. COMPARISON: 09/18/2018. FINDINGS: There is no intracranial hemorrhage. Carrasco-white differentiation is preserved. The ventricles are normal in size and position. The temporal bones are unremarkable. The calvarium reveals no suspicious lesions. There is a chronic fracture of the left lamina papyracea with mild depression. There is also chronic depressed fracture of the left diagrammatic arch. A fracture of the left nasal bone also appears chronic. No acute facial fractures are seen. The visualized paranasal sinuses appear clear. The orbits are unremarkable. There are multiple large dental caries. There is a comminuted fracture of the left occipital condyle. Small chip fractures likely arise from the left lateral mass of C1. Atlantooccipital alignment is maintained. There is no dens fracture. There is mild osteoarthritis at C1/2. A fracture of the left C3 lateral mass involves the pedicle and the superior facet articular surface. A small ossicle along the posterior aspect of the left C2-3 facet joint may be a loose body. The fracture line involves the posterior aspect of the left transverse foramen. There is 2 mm retrolisthesis at C3-4. There is slight retrolisthesis from C5 through C7. Degenerative disc disease is moderate to severe at C3-4 and C5-C7. There is no prevertebral soft tissue swelling. At C2-3, there is a small posterior disc bulge. There is no stenosis. At C3-4, there is a moderate posterior disc-osteophyte complex. Central canal stenosis is mild. Uncovertebral osteoarthritis is moderate on the left and moderate to severe on the right. Neural foraminal stenosis is severe on the right and moderate to severe on the left. At C4-5, there is a moderate posterior disc bulge with a superimposed small central protrusion. Central canal stenosis appears mild. Neural foraminal stenosis is mild on the right. At C5-6, there is a moderate posterior disc-osteophyte complex. Central canal stenosis appears mild to moderate. The uncovertebral osteoarthritis is moderate to severe bilaterally. Neural foraminal stenosis is moderate to severe bilaterally. At C6-7, there is a moderate posterior disc bulge. Central canal stenosis appears mild. Uncovertebral osteoarthritis is moderate to severe on the left greater than right. Neural foraminal stenosis is moderate on the right and moderate to severe on the left. IMPRESSION: 1. No acute intracranial findings. 2. Comminuted fracture of the left occipital condyle. Small chip fractures of the left C1 lateral mass. Atlantooccipital alignment is maintained. 3. A fracture of the left C3 pedicle extends to the left lateral mass involves the left C2-3 facet joint. There is slight retrolisthesis at C3-4. The left transverse foramen isn't involved along its posterior aspect. CTA of the neck could further evaluate if there is concern for vertebral artery injury. 4. Cervical degenerative changes result in multilevel mild to moderate central canal stenosis and multilevel moderate to severe neural foraminal stenosis as above. 5. Chronic facial fractures as above. No acute facial fractures. These findings were called to Dr. Vanegas by James Cain on 11/09/2020 at 5:42 PM. FOR INTERNAL CODING PURPOSES RESULT CODE: (C) Electronically signed by: Samantha Cain MD (11/09/2020 5:50 PM) [id number] DICTATED and SIGNED BY: HILDA CAIN MD DATE: 11/09/20 [id number] 0 (VERONICA VANEGAS DO) Course & Med Decision Making: Course & Med Decision Making Pertinent Labs and Imaging studies reviewed. (See chart for details) Concern for left occipital condyle fracture, left C1 lateral mass fracture and C3 fracture. Neurosurgery called by myself in ED, awaiting response. I spoke with Dr. Boothe, general surgery, regarding pts' management. Due to shift change patient was signed out to oncoming physician Dr. Nuñez for further medical management disposition. (VERONICA VANEGAS DO) Course & Med Decision Making Assumed care of patient from Dr. Vanegas. At checkout neurosurgery recommendations and imaging was pending. At this time our neurosurgeon is unavailable until Saturday and we do not have a backup neurosurgeon. Patient has multiple fractures in the cervical spine. He is neurovascularly intact at this time. CT angio will be done of the neck to rule out any vascular injury. [facility] for trauma care. Further imaging shows chronic fractures of the face and lumbar spine. No acute fractures were found other than in the cervical spine. CT chest abdomen pelvis did not show any acute pathology. Tetanus was updated. Patient was given morphine for pain. He did receive a liter of fluid as he did require contrast twice today. Discussed with patient the need for transfer and patient is in agreement. He will remain in cervical spine precautions. (KYUNG NUÑEZ MD) Dragon Disclaimer: Dragon Disclaimer: This electronic medical record was generated, in whole or in part, using a voice recognition dictation system. (VERONICA VANEGAS DO) Critical Care Time Critical Care: Authorized and Performed by: Kyung Nuñez MD Total critical care time: approximately 35 minutes Due to a high probability of clinically significant, life threatening deterioration, the patient required my highest level of preparedness to intervene emergently and I personally spent this critical care time directly and personally managing the patient. This critical care time included obtaining a history; examining the patient; pulse oximetry; ventilator management if necessary; ordering and review of studies; arranging urgent treatment with development of a management plan; evaluation of patient's response to treatment; frequent reassessment; discussion with patient/family; and, discussions with other providers. This critical care time was performed to assess and manage the high probability of imminent, life-threatening deterioration that could result in multi-organ failure. It was exclusive of separately billable procedures and treating other patients and teaching time. Please see MDM section and the rest of the note for further information on patient assessment and treatment. (KYUNG NUÑEZ MD) Departure Departure Impression: Primary Impression: Multiple fractures of cervical spine, closed Additional Impressions: Fall from tree Wrist pain Disposition: 02 SHORT TERM HOSPITAL Condition: STABLE Referrals: NO PCP (PCP) VERONICA VANEGAS DO Nov 09, 2020 17:36 KYUNG NUÑEZ MD Nov 09, 2020 21:01
--- NOTE | 2020-11-09 17:53 | RAD ---
EXAM: 1. CT HEAD WITHOUT CONTRAST. 2. CT FACIAL BONES WITHOUT CONTRAST. 3. CT CERVICAL SPINE WITHOUT CONTRAST. HISTORY: Fall from tree, pain. TECHNIQUE: Computed tomography of the head, facial bones and cervical spine was performed without int ravenous contrast. One or more of the following individualized dose reduction techniques were utilize d for this examination: 1. Automated exposure control. 2. Adjustment of the mA and/or kV according to patient size. 3. Use of iterative reconstruction technique. COMPARISON: 09/18/2018. FINDINGS: There is no intracranial hemorrhage. Carrasco-white differentiation is preserved. The ventricl es are normal in size and position. The temporal bones are unremarkable. The calvarium reveals no suspicious lesions. There is a chronic fracture of the left lamina papyracea with mild depression. There is also chronic depressed fracture of the left diagrammatic arch. 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 No acute facial fractures are seen. The visualized paranasal sinuses appear clear. The orbits ar e unremarkable. There are multiple large dental caries. There is a comminuted fracture of the left occipital condyle. Small chip fractures likely arise from the left lateral mass of C1. Atlantooccipital alignment is maintained. There is no dens fracture. The re is mild osteoarthritis at C1/2. A fracture of the left C3 lateral mass involves the pedicle and the superior facet articular surface. A small ossicle along the posterior aspect of the left C2-3 facet joint may be a loose body. The fra cture line involves the posterior aspect of the left transverse foramen. There is 2 mm retrolisthesis at C3-4. There is slight retrolisthesis from C5 through C7. Degenerative disc disease is moderate to severe at C3-4 and C5-C7. There is no prevertebral soft tissue swelling. At C2-3, there is a small posterior disc bulge. There is no stenosis. At C3-4, there is a moderate posterior disc-osteophyte complex. Central canal stenosis is mild. Uncov ertebral osteoarthritis is moderate on the left and moderate to severe on the right. Neural foraminal stenosis is severe on the right and moderate to severe on the left. At C4-5, there is a moderate posterior disc bulge with a superimposed small central protrusion. Centr al canal stenosis appears mild. Neural foraminal stenosis is mild on the right. At C5-6, there is a moderate posterior disc-osteophyte complex. Central canal stenosis appears mild t o moderate. The uncovertebral osteoarthritis is moderate to severe bilaterally. Neural foraminal sten osis is moderate to severe bilaterally. At C6-7, there is a moderate posterior disc bulge. Central canal stenosis appears mild. Uncovertebral osteoarthritis is moderate to severe on the left greater than right. Neural foraminal stenosis is mo derate on the right and moderate to severe on the left. IMPRESSION: 1. No acute intracranial findings. 2. Comminuted fracture of the left occipital condyle. Small chip fractures of the left C1 lateral mas s. Atlantooccipital alignment is maintained. 3. A fracture of the left C3 pedicle extends to the left lateral mass involves the left C2-3 facet sara int. There is slight retrolisthesis at C3-4. The left transverse foramen isn't involved along its pos terior aspect. CTA of the neck could further evaluate if there is concern for vertebral artery injury . 4. Cervical degenerative changes result in multilevel mild to moderate central canal stenosis and mul tilevel moderate to severe neural foraminal stenosis as above. 5. Chronic facial fractures as above. No acute facial fractures. These findings were called to Dr. Jerez by James Cain on 11/09/2020 at 5:42 PM. FOR INTERNAL CODING PURPOSES RESULT CODE: (C) Electronically signed by: Samantha Cain MD (11/09/2020 5:50 PM) [id number]
[2020-11-09] MEDS ORDERED: IOHEXOL 300 MG/ML 100ML VIAL. IV ONE (18:00)
[2020-11-09] MEDS ORDERED: CONTRAST GIVEN. MC PRN (18:00)
--- NOTE | 2020-11-09 18:21 | RAD ---
Exam: CT of chest, abdomen and pelvis with contrast INDICATION: Fall from tree TECHNIQUE: Sequential axial images through the chest, abdomen and pelvis obtained following the admin istration of 75 mL of Omni 300 IV contrast. Sagittal and coronal reformatted images were reconstructe d from the axial data and reviewed. Exposure: One or more of the following in the visualized dose reduction techniques were utilized for this examination: 1. Automated exposure control 2. Adjustment of the MA and/or KV according to patient size 3. Use of iterative of reconstructive technique Comparisons: 09/18/2018 FINDINGS: Visualized portions of the thyroid are unremarkable. No enlarged mediastinal lymph nodes are identifi ed. Heart size is normal. No pericardial effusion. Thoracic aorta has a normal course and caliber. Pulmon sarah artery is not enlarged. Airways are patent. No consolidation or pneumothorax. There is mild to moderate centrilobular emphyse matous change noted predominantly the upper lungs. A 5 mm pleural-based nodule in the right lower lob e series 2 image 49. No effusion or thickening. Liver, spleen, pancreas, gallbladder and adrenals are unremarkable. No perinephric inflammation or hydronephrosis. No renal or ureteral calculi are identified. Bladder is partially distended and appears thin-walled. Prostate is not enlarged. Large and small bowel are unremarkable. Appendix is nonidentified. No free intra-abdominal air or flu id. No obstruction. Abdominal aorta has a normal course and caliber. Abdominal vasculature is patent. No enlarged intra-abdominal lymph nodes are identified. No suspicious osseous fractures. Thoracolumbar spine: Mild compression fracture involving the superior endplate of L2 which has mildly progressed when comp ared to study in 2019. Displaced fracture to the thoracolumbar spine is not identified. Mild multilevel spondylotic change in the lower lumbar spine with degenerative disc disease greatest at L2-L3, L3-L4 and L4-L5. Bilateral facet arthropathy is also noted lumbar spine. There is at least moderate bilateral neural foraminal stenosis at L5-S1. IMPRESSION: 1. No sequela of acute traumatic injury identified within the chest, abdomen or pelvis. 2. Compression fracture involving the superior endplate of L2 which has mildly progressed when jocelyne red to study in 2019. Correlate with point tenderness. 3. A 5 mm pleural-based nodule in the right lower lobe. Recommend one-year follow-up chest CT to everardo ssess. Electronically signed by: Bobo Mccray MD (11/09/2020 6:18 PM) JENSEN
[2020-11-09] MEDS ORDERED: OXYC5TAB88 PO (18:23)
[2020-11-09] MEDS ORDERED: MORPHINE SULFATE 10 MG/ML VIAL. IV ONE (19:15)
[2020-11-09 19:20] LABS: BARBITURATES NEG (NEG); BENZODIAZEPINES NEG (NEG); CANNABINOIDS NEG (NEG); COCAINE POS (NEG); METHADONE NEG (NEG); OPIATES NEG (NEG); PHENCYCLIDINE NEG (NEG)
[2020-11-09 19:21] LABS: AMPHETAMINE/METHAMPHETAMINE NEG (NEG)
--- NOTE | 2020-11-09 20:20 | RAD ---
EXAM: CTA NECK WITH AND WITHOUT CONTRAST. HISTORY: Cervical fractures involving the foramen transversarium. Assess for vertebral artery injury. TECHNIQUE: Computed tomographic angiography of the neck was performed before and after the intravenou s administration of iodinated contrast. Three-dimensional reconstructions were also performed. COMPARISON: Today's earlier CT. FINDINGS: Angiographic findings: The aortic arch has a typical branching pattern. There is no arch vessel steno sis. Both common carotid arteries are patent without stenosis. Both internal carotid arteries are patent w ithout stenosis. The external carotid systems are patent. There are mild atherosclerotic calcificatio ns along both cavernous internal carotid arteries. The left vertebral artery is dominant and the right relatively small. There is no evidence of injury to the left vertebral artery at the level of the C3 fracture. One of the left occipital condylar frag ments exerts mild mass effect on the left vertebral artery in its extraforaminal segment. There is no clearly significant luminal narrowing or intimal injury. The right vertebral artery is patent. The b asilar artery is small and the main supply to both posterior cerebral arteries is the posterior commu nicating arteries. Nonangiographic findings: Refer to today's CT for description of cervical spine and occipital condyla r fractures. The lung apices demonstrate moderate to severe centrilobular emphysema. The parotid glands and submandibular glands are unremarkable. A 5 mm nodule in the left thyroid lobe is likely benign. There is a benign coarse calcification in the right thyroid lobe. There are no laryngeal or pharyngeal masses. There are no pathologically enlarged lymph nodes. IMPRESSION: 1. No evidence of left vertebral artery injury. One of the left occipital lobe condylar fragments exe rt mass effect on the left vertebral artery is a foraminal segment. There is no clear luminal narrowi ng at this site in this position. It is possible that there could be impingement on the left vertebra l artery with head turning. 2. No hemodynamically significant carotid stenosis. PQRS Compliance Statement - Stenosis calculations for CT, MR and conventional angiography are based u juani measurement of the distal ICA diameter in accordance with the NASCET methodology. Stenosis calcu lations for carotid ultrasound studies are derived from validated velocity criteria which are known t o correlate with the NASCET methodology. *One or more of the following individualized dose reduction techniques were utilized for this examina tion: 1. Automated exposure control. 2. Adjustment of the mA and/or kV according to patient size. 3. Use of iterative reconstruction technique. Electronically signed by: Samantha Cain MD (11/09/2020 8:17 PM) [id number]
--- NOTE | 2020-11-09 21:07 | RAD ---
Exam: Right wrist 3 views INDICATION: Fall from 10 foot TECHNIQUE: Frontal, lateral and oblique views of the right wrist Comparisons: None FINDINGS: Mild soft tissue swelling at the wrist. Bone mineralization is normal. No acute fractures identified. Joint spaces are well-maintained. IMPRESSION: Mild soft tissue swelling at the wrist without underlying osseous abnormality identified. Electronically signed by: Bobo Mccray MD (11/09/2020 9:05 PM) JENSEN
[2020-11-09 21:30] VITALS: BP 137/69
[2020-11-09] MEDS ORDERED: IOHEXOL 350 MG/ML 100 ML VIAL. ONE (22:27)
[2020-11-09] MEDS ORDERED: IOHEXOL 300 MG/ML 100ML VIAL. ONE (22:27)
== END 2020-11-09 21:42 | disposition short-term general hospital (02) ==
LOC: ER 16:55
DX: S12.9XXA Fracture of neck, unspecified, initial encounter (principal); Z20.822 Contact with and (suspected) exposure to COVID-19; M25.531 Pain in right wrist; R10.9 Unspecified abdominal pain; R51.9 Headache, unspecified; M48.07 Spinal stenosis, lumbosacral region; F17.200 Nicotine dependence, unspecified, uncomplicated; W14.XXXA Fall from tree, initial encounter; Y93.89 Activity, other specified; Y92.89 Other specified places as the place of occurrence of the external cause; Y99.8 Other external cause status
CPT/HCPCS: 36415; 70450; 70486; 70498; 71260; 72125; 73110; 74177; 80053; 80307; 85025; 87426; 96361; 96374; 99291; G0390; G0480; J2270; J7030; Q9967; U0003; U0005; 99285-25